=== PATIENT | male | born 1990 | race Caucasian/White ===

== ENCOUNTER 2017-03-03 22:26 | Emergency (ER) | payer OTHER ==
[~2017-03-03] VITALS: Ht 200.7 cm; Wt 113.4 kg
[2017-03-03 22:30] VITALS: Ht 200.7 cm; Wt 113.4 kg
--- NOTE | 2017-03-03 22:30 | NUR ---
TRIAGE NOTE PT HAS SOME SCRAPES ON HIS LEFT FOREARM AND A CUT TO THE RIGHT 5TH DIGIT. NO ACUTE BLEEDING
--- NOTE | 2017-03-03 22:40 | ERPDOC ---
Departure Disposition Decision Date: Mar 04, 2017 Disposition Decision Time: 00:15 Disposition: 01 DISCHARGED HOME, SELF-CARE Impression Impression Impression: Primary Impression: Acute neck sprain Qualified Codes: S13.9XXA - Sprain of joints and ligaments of unspecified parts of neck, initial encounter Additional Impressions: Head injury Qualified Codes: S09.90XA - Unspecified injury of head, initial encounter Fall Qualified Codes: W19.XXXA - Unspecified fall, initial encounter Multiple abrasions Severity: Moderate Condition: Improved Seen By: Mid-level only Referrals: SERENE VENEGAS MD (Family) Patient Instructions: Acute Neck Pain (ED), Head Injury (ED) Problems/Meds/Labs Reviewed?: Yes Medications reviewed and manag: Yes Additional Instructions: Your head CT did not show a fracture or bleed. Your CT of c-spine did not show a fracture. You have a neck sprain. Wear soft collar as instructed. You may take 800mg of ibuprofen with food every 8 hours for pain. You may take [place] 5/325mg, 1-2 tab every 4-6 hours for pain. This medication may cause drowsiness so avoid operating heavy machinery, driving or drinking alcohol while taking. You may take baclofen 10mg every 8 hours for muscle spasm of your neck. This medication may cause drowsiness so avoid operating heavy machinery, driving or drinking alcohol while taking. BACK SPRAIN / NECK INJURY: - Ice and heat massage. Ice pack to area followed by heating pad, 4 times a day for 20 minutes each time. - Avoid positions or movements that make pain worse. - Report numbness or weakness. Follow with your PCP early next week for re-evaluation. Follow up care ordered?: Yes Mental Status: Alert, Oriented Scripts Baclofen (Baclofen) 10 Mg Tablet 1 TAB PO TID for MUSCLE PAIN, #30 TAB Prov: BART NAM LASER OPERATOR 03/04/17 Hydrocodone/Acetaminophen ([place] 5-325 Tablet) 5-325 Tablet 1-2 TAB PO Q4-6HPRN for PAIN, #30 TAB Prov: BART NAM LASER OPERATOR 03/04/17 HPI - Head Injury General Stated Complaint: HIT HEAD/PAIN Time Seen by Provider: 22:40 Source: patient HPI - Head Injury Initial Comments 26 YO M presents to ED with left sided head pain and neck pain. 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 Patient struck left side and the back of his head. Patient is unsure if he had LOC. Says that he may have had a brief few seconds of LOC. Patient declines back pain or any other injuries other than minor abrasions. Pain Scale: Now: 7/10 Location: occipital Method of Injury: fell Loss of Consciousness: unsure Associated Symptoms: DENIES: chest pain, cough, diaphoresis, fever/chills, headaches, loss of appetite, malaise, nausea/vomiting, rash, seizure, shortness of breath, syncope, weakness Allergies: Coded Allergies: naproxen (Verified Allergy, Unknown, 03/03/17) Past History Past Medical History Pt denies signifigant PMH Surgical History Denies Surgeries Family History Family PMH: FOUND: other (noncontributory) Social History Current Occupational Status: employed Review of Systems Constitutional Constitutional: DENIES: chills, dizziness, fever, weakness Eyes General: DENIES: erythema, exudate Lids/Accessories: DENIES: erythema, swelling Vision: DENIES: blurring ENMT Ears: DENIES: pain Hearing: DENIES: hearing loss Sinuses: DENIES: congestion, rhinorrhea Mouth/Throat: DENIES: sore throat Cardiovascular Cardiac: DENIES: chest pain, murmur Rhythm/Rate: DENIES: palpitations Pulmonary Respiratory: DENIES: cough, dyspnea GI Upper Abdomen: DENIES: nausea, pain, vomiting Lower Abdomen: DENIES: diarrhea, pain General: DENIES: pain Musculoskeletal General: pain, tenderness Integumentary Skin: DENIES: color change, itching, rash Neurological General: headache, DENIES: ataxia, change in strength, numbness, paralysis/ paresis, weakness Psychiatric Psychiatric: DENIES: anxiety, depression, nervousness Physical Exam General General Nourishment: well nourished, well developed, adult General Body Habitus: well groomed Vitals and Pain Weight: Kilograms: Height (feet): Height (inches): Triage Pain Scale: Eyes (brief) Eyes Brief: found: EOMI, PERRL ENMT Ear/Canal/Mastiod: NOT FOUND: blood, discharge Tympanic Membrane : Location: Bilateral Tympanic Membrane: FOUND Normal, NOT FOUND Hemotympanum Nose: NOT FOUND: deformity, drainage Mouth/Dental/Tongue: NOT FOUND: loose teeth, tender teeth Pharynx: NOT FOUND: displacement, posterior drainage, uvular deviation Jaw: NOT FOUND: tenderness, trismus Head: symmetric Scalp: NOT FOUND: Crawford's sign, abrasion, contusion, erythema, laceration Neck (brief) Neck: FOUND: tenderness (mild TTP over C 2-5, lateral left TTP over) Respiratory (brief) Respiratory: FOUND: clear all murillo, equal bilaterally, symmetrical Cardiovascular (brief) Cardiac: FOUND: regular rate, regular rhythm Abdomen (brief) Abdominal Brief: FOUND: bowel normo active x4 Musculoskeletal Joint : Side: Bilateral Joint: shoulder, elbow, wrist, hip, knee, ankle Joint Findings: NOT FOUND: ROM limited, deformity, discoloration, instability, pain, swelling Back: NOT FOUND: spasm, spine point tenderness, tenderness Integumentary General: FOUND: dry, warm Color: FOUND: pink Laceration: FOUND: abrasions (see below) Comments Multiple abrasion on left distal anterior thigh Neurologic (brief) Neurological Brief: FOUND: CN w/o gross def to obs Neurologic Mental Status: FOUND: alert, oriented Cranial Nerves: NOT FOUND: facial asymmetry Motor : Motor Side: bilateral Motor Location: quadriceps, hamstring, foot extension, foot flexion, tubing drier strength Motor Degree: 5 Sensation: FOUND: soft touch intact x4 ext Cerebellar: FOUND: tandem walk Psychiatric (brief) Psychiatric Brief: FOUND: normal affect Differential Diagnoses Considering: Concussion, Contusion, Epidural Hemorrhage, Skull Fracture, Acute Subdural Hemorrhage Progress Results/Orders Orders Procedure Category Date Status Time Ct Head W/O Contrast CT 03/03/[address] Cervical Spine W/O CT 03/03/17 Resulted Contrast Orphenadrine (Norflex) PHA 03/03/17 Complete 22:45 Hydromorphone PHA 03/03/17 Complete (Dilaudid) 22:45 Hydrocodone/Apap PHA 03/04/17 Complete 5/325 Prepack ([place] 5 00:15 Baclofen (Baclofen 10 PHA 03/04/17 Complete Mg (Prepack)) 00:15 Medications Current ED Medications Orphenadrine Citrate (Norflex) 60 mg O ONCE IM Last administered on 03/03/17t 23:05; Start 03/03/17 at 22:45; Stop 03/03/17 at 22:48; Status DC Hydromorphone HCl (Dilaudid) 1 mg O ONCE IM Last administered on 03/03/17 23: 05; Start 03/03/17 at 22:45; Stop 03/03/17 at 22:48; Status DC Acetaminophen/ Hydrocodone Bitart (NORCO 5 (PrePack)) 1 pack O ONCE SENT HOME Last administered on 03/04/17 00:38; Start 03/04/17 at 00:15; Stop 03/04/17 at 00:16; Status DC Baclofen (BACLOFEN 10 MG (PrePack)) 1 pack O ONCE SENT HOME Last administered on 03/04/17 00:38; Start 03/04/17 at 00:15; Stop 03/04/17 at 00:16; Status DC Progress Progress Patient reports that he is still having left sided neck pain after 1mg of Dilaudid and 60mg of Norflex. I discussed CT results with patient. C-collar removed. Patient says that pain on left lateral neck is worse with palpation and movement of neck. Pain is 3/10 when neck is still, 5/10 with movement and palpation. I discussed with patient conversation I had with Dr. Morgan trauma surgeon at [facility] (see below). Patient verbalized understanding of treatment plan, close follow up with PCP and return precautions. Patient was placed in a soft collar for comfort. Consult/PCP Consult/PCP : Physician Contacted: Dr. Morgan Time Called: 00:00 Type of discussion: Phone Consult/PCP Discussion Details I discussed patient's HPI, past medical history, CT results, vital signs and exam findings with Dr. Morgan at [facility] [address] Morgan feels that patient "wrenched his neck" and that patient may go home home. Does not need to be transferred for trauma. Patient does need to follow with PCP early next week for re-evaluation. CT CT #1: CT: Head no contrast Interpretation: Normal (no acute intracranial findings ), Faxed Report CT #2: CT: C-Spine IV contrast (no acute cervical spinal fracture, disc protrusion at C4-5 mildly narrows the central canal.) BART NAM APRN Mar 03, 2017 22:40
[2017-03-03] MEDS ORDERED: ORPHENADRINE 60mg/2ml INJECTION IM ONE (22:45)
[2017-03-03] MEDS ORDERED: HYDROMORPHONE 2mg/ml INJECTION IM ONE (22:45)
[2017-03-03] MEDS ORDERED: NO ROUTINE MEDS (22:56)
[2017-03-04] MEDS ORDERED: HYDROCODONE/APAP 5/325 (PrePack) SENT HOME ONE (00:15)
[2017-03-04] MEDS ORDERED: BACLOFEN 10 MG TABLET #3 (PrePack) SENT HOME ONE (00:15)
[2017-03-04] MEDS ORDERED: HYDR-4246 PO (00:23)
[2017-03-04] MEDS ORDERED: BACL10TA PO (00:23)
[2017-03-04 00:40] VITALS: BP 115/59; PULSE 61; RESP 14; TEMP 98.1; O2SAT 96
--- NOTE | 2017-03-04 09:08 | DI ---
Indication: ITS.REASON: fell struck right side of head PROCEDURE: CT HEAD W/O CONTRAST: Encounter: Initial Comparison: None Technique: Axial CT images through the head were performed without contrast. Iterative Reconstruction dose reducing technique was utilized. FINDINGS: The ventricles are of normal size, shape, and configuration for the patient's age. There is no evidence of acute intracranial hemorrhage, midline displacement, or mass effect. The CT attenuation of the brain parenchyma is normal within the cerebellum, brain stem, and cerebral hemispheres. The tympanic cavities and mastoid air cells are free of appreciable disease. There are no definite fractures of the skull base, calvarium, or visualized portion of the midface. IMPRESSION: No CT evidence of acute traumatic intracranial injury. There is a preliminary report by [facility]. .
--- NOTE | 2017-03-04 09:09 | DI ---
Indication: ITS.REASON: pain after falling backward, TTP C2-5 PROCEDURE: CT CERVICAL SPINE W/O CONTRAST: Encounter: Initial Comparison: None Technique: Axial CT images through the cervical spine were performed without contrast. Coronal and sagittal reformatted images were also obtained. Automated Exposure Control and Iterative Reconstruction dose reducing techniques were utilized. FINDINGS: The alignment of the cervical spine is normal. There is no evidence of acute fracture or subluxation of the cervical spine. The facet joints are well aligned with preservation of the intervertebral disk and facet joints. The atlantoaxial articulation, dens, and upper cervical spine demonstrate no subluxation. Small central disk protrusion at C4-C5.The paraspinal soft tissues and spinal canal appear unremarkable. IMPRESSION: No acute traumatic abnormality of the cervical spine. There is a preliminary report by [facility]. .
== END 2017-03-04 00:40 | disposition home or self-care (01) ==
LOC: ED 22:26
DX: S13.9XXA Sprain of joints and ligaments of unspecified parts of neck, initial encounter (principal); S09.90XA Unspecified injury of head, initial encounter; S70.312A Abrasion, left thigh, initial encounter; W01.0XXA Fall on same level from slipping, tripping and stumbling without subsequent striking against object, initial encounter; Y93.9 Activity, unspecified; Y92.39 Other specified sports and athletic area as the place of occurrence of the external cause; Y99.0 Civilian activity done for income or pay
CPT/HCPCS: 70450; 72125; 96372; 99284; J1170; J2360; L0150